=== PATIENT | female | born 1945 | race Caucasian/White ===

== ENCOUNTER → 2016-09-05 | Outpatient (CLI) | payer MEDICARE ==
[~2016-09-05] MED LIST: ASPI325T92 PO; ATOR10TA PO; DIAZ2TAB3 PO; FURO-93 PO; LEVO25TA4 PO; METO25TA35 PO
[2016-09-05 17:55] LABS: ASPARTATE AMINO TRANSFERASE 15 U/L (15-37); BLOOD UREA NITROGEN 16 mg/dL (7-18)
== END | disposition home or self-care (01) ==
LOC: LAB 17:11
PROVIDERS: ATTEND Internal Medicine Cardiovascular Disease
DX: I10 Essential (primary) hypertension (principal); E78.2 Mixed hyperlipidemia
CPT/HCPCS: 36415; 80053

== ENCOUNTER 2017-01-12 12:17 | Emergency (ER) | payer MEDICARE ==
[~2017-01-12] VITALS: Ht 170.2 cm; Wt 75.5 kg
[2017-01-12 12:19] VITALS: BP 103/56
== END 2017-01-12 12:56 | disposition home or self-care (01) ==
LOC: ED 12:40
DX: L03.313 Cellulitis of chest wall (principal)
CPT/HCPCS: 99283

== ENCOUNTER 2017-03-12 00:20 | Emergency (ER) | payer MEDICARE ==
[~2017-03-12] VITALS: Ht 170.2 cm; Wt 76.2 kg
[2017-03-12 02:30] VITALS: BP 118/77
== END 2017-03-12 02:33 | disposition home or self-care (01) ==
LOC: ED 01:31
DX: Z00.00 Encounter for general adult medical examination without abnormal findings (principal)
CPT/HCPCS: 99281

== ENCOUNTER 2017-10-28 02:40 | Emergency (ER) | payer MEDICARE, OTHER ==
[~2017-10-28] VITALS: Ht 162.6 cm; Wt 74.8 kg
[2017-10-28] MEDS ORDERED: NAPROXEN 500 MG TABLET ONE (03:25)
[2017-10-28 03:27] VITALS: BP 122/57
[2017-10-28] MEDS ORDERED: NAPROXEN 500 MG TABLET PO ONE (03:30)
[2017-10-28 03:33] LABS: BASOPHILS # (AUTO) 0.04 x10^3/uL (0-0.1); BASOPHILS % (AUTO) 1 % (0-1); EOSINOPHILS # (AUTO) 0.09 x10^3/uL (0-0.4); EOSINOPHILS % (AUTO) 2 % (1-7); LYMPHOCYTES # (AUTO) 1.46 x10^3/uL (1-3.4); LYMPHOCYTES % (AUTO) 25 % (22-44); MD NO; MEAN CORPUSCULAR HEMOGLOBIN 28.9 pg (27.0-34.8); MEAN CORPUSCULAR HGB CONC 33.2 g/dL (32.4-35.8); MEAN CORPUSCULAR VOLUME 86.9 fL (80-100); MEAN PLATELET VOLUME 9.8 fL (7.4-10.4); MONOCYTES # (AUTO) 0.83 x10^3/uL (0.2-0.8); MONOCYTES % (AUTO) 14 % (2-9); NEUTROPHILS # (AUTO) 3.53 x10^3/uL (1.8-6.8); NEUTROPHILS % (AUTO) 59 % (42-75); PLATELET COUNT 163 x10^3/uL (130-400); RED BLOOD COUNT 4.31 x10^6/uL (3.82-5.3); RED CELL DISTRIBUTION WIDTH 14.4 % (9.6-15.2)
[2017-10-28 03:41] LABS: ALANINE AMINOTRANSFERASE 19 U/L (12-78); ALBUMIN 3.5 g/dL (3.4-5.0); ANION GAP 6 mmol/L (5-15); CALCIUM 8.2 mg/dL (8.5-10.1); CHLORIDE 106 mmol/L (98-107); CREATININE 0.74 mg/dL (0.55-1.02)
[2017-10-28 03:46] LABS: ALKALINE PHOSPHATASE 72 U/L (45-117); BILIRUBIN,TOTAL 0.4 mg/dL (0.2-1.0); T4 (THYROXINE) 7.3 mcg/dL (4.8-13.9); TOTAL PROTEIN 6.4 g/dL (6.4-8.2); TROPONIN I < 0.015 ng/mL (0.000-0.045)
== END 2017-10-28 04:38 ==
LOC: ED 04:30
DX: R00.2 Palpitations (principal); R60.0 Localized edema; E03.1 Congenital hypothyroidism without goiter; I10 Essential (primary) hypertension; I48.91 Unspecified atrial fibrillation
CPT/HCPCS: 36415; 71045; 80053; 83880; 84436; 84443; 84484; 85025; 93005; 99285

== ENCOUNTER 2018-02-08 19:58 | Emergency (ER) | payer MEDICARE, OTHER ==
[~2018-02-08] VITALS: Ht 170.2 cm; Wt 60.0 kg
[2018-02-08 20:47] LABS: BASOPHILS # (AUTO) 0.04 x10^3/uL (0-0.1); BASOPHILS % (AUTO) 1 % (0-1); EOSINOPHILS % (AUTO) 1 % (1-7); LYMPHOCYTES # (AUTO) 1.96 x10^3/uL (1-3.4); LYMPHOCYTES % (AUTO) 25 % (22-44); MD NO; MEAN CORPUSCULAR HEMOGLOBIN 30.2 pg (27.0-34.8); MEAN CORPUSCULAR HGB CONC 33.6 g/dL (32.4-35.8); MEAN CORPUSCULAR VOLUME 90.1 fL (80-100); MONOCYTES # (AUTO) 0.72 x10^3/uL (0.2-0.8); MONOCYTES % (AUTO) 9 % (2-9); NEUTROPHILS # (AUTO) 5.06 x10^3/uL (1.8-6.8); NEUTROPHILS % (AUTO) 64 % (42-75); PLATELET COUNT 197 x10^3/uL (130-400); RED BLOOD COUNT 4.75 x10^6/uL (3.82-5.3); RED CELL DISTRIBUTION WIDTH 14.8 % (9.6-15.2)
[2018-02-08 20:48] LABS: MICROSCOPIC AUTO
[2018-02-08 20:50] LABS: CULTURE INDICATED? YES
[2018-02-08 20:59] LABS: ALANINE AMINOTRANSFERASE 23 U/L (12-78); ALBUMIN 4.3 g/dL (3.4-5.0); ANION GAP 8 mmol/L (5-15); CHLORIDE 106 mmol/L (98-107); CREATININE 0.79 mg/dL (0.55-1.02)
[2018-02-08 21:01] LABS: ALKALINE PHOSPHATASE 75 U/L (45-117); BILIRUBIN,TOTAL 0.7 mg/dL (0.2-1.0); TOTAL PROTEIN 7.5 g/dL (6.4-8.2)
[2018-02-08 21:31] VITALS: BP 114/72
== END 2018-02-08 21:48 | disposition home or self-care (01) ==
LOC: ED 20:30
DX: S16.1XXA Strain of muscle, fascia and tendon at neck level, initial encounter (principal); G44.219 Episodic tension-type headache, not intractable; E03.9 Hypothyroidism, unspecified; I10 Essential (primary) hypertension; I48.91 Unspecified atrial fibrillation; L03.116 Cellulitis of left lower limb; Z88.6 Allergy status to analgesic agent; Z88.0 Allergy status to penicillin; V49.49XA Driver injured in collision with other motor vehicles in traffic accident, initial encounter; Y93.89 Activity, other specified; Y99.8 Other external cause status; Y92.410 Unspecified street and highway as the place of occurrence of the external cause
CPT/HCPCS: 36415; 80053; 81001; 83690; 85025; 87086; 99284

== ENCOUNTER → 2018-06-20 | Outpatient (CLI) | payer MEDICARE, OTHER ==
[2018-06-20 12:55] LABS: CHLORIDE 110 mmol/L (98-107)
[2018-06-20 13:01] LABS: ALANINE AMINOTRANSFERASE 17 U/L (12-78); ALKALINE PHOSPHATASE 78 U/L (45-117); ANION GAP 5 mmol/L (5-15); BILIRUBIN,TOTAL 0.7 mg/dL (0.2-1.0); CHOL/HDL RATIO 3.4; CHOLESTEROL, TOTAL 203 mg/dL (140-239); CREATININE 0.69 mg/dL (0.55-1.02); HDL CHOL % 29 % (28-40); HDL CHOLESTEROL (DIRECT) 59 mg/dL (40-60); LDL CHOLESTEROL,CALCULATED 118 mg/dL (54-169); TOTAL PROTEIN 6.8 g/dL (6.4-8.2); TRIGLYCERIDES 132 mg/dL (50-200); VLDL CHOLESTEROL 26 mg/dL (0-25)
== END | disposition home or self-care (01) ==
LOC: CFH 09:24
PROVIDERS: ATTEND Internal Medicine Cardiovascular Disease
DX: E78.2 Mixed hyperlipidemia (principal)
CPT/HCPCS: 36415; 80053; 80061

== ENCOUNTER 2018-07-25 18:24 | Emergency (ER) | payer MEDICARE, OTHER ==
[~2018-07-25] VITALS: Ht 170.2 cm; Wt 64.5 kg
--- NOTE | 2018-07-25 18:55 | NUR ---
PT AMBULATED TO ROOM WITH STEADY GAIT. PT REPORTS HAVING VERTIGO THAT STARTED TODAY. PT IS ALERT, ORIENTED WITH NAD. PT IS CONNECTED TO THE MONITOR. CALL LIGHT WILernstiftIN REACH.
--- NOTE | 2018-07-25 18:55 | NUR ---
Recieved bedside report from LEONOR Christopher. All questions answered. NADN. Pt connected to all monitors. All safety measures in place. Call light within reach. No needs expressed at this time.
[2018-07-25] MEDS ORDERED: MECLIZINE CHEWABLE 25 MG TAB PO ONE (19:00)
[2018-07-25 19:02] LABS: BASOPHILS # (AUTO) 0.04 x10^3/uL (0-0.1); BASOPHILS % (AUTO) 1 % (0-1); EOSINOPHILS # (AUTO) 0.15 x10^3/uL (0-0.4); EOSINOPHILS % (AUTO) 2 % (1-7); LYMPHOCYTES % (AUTO) 21 % (22-44); MD NO; MEAN CORPUSCULAR HEMOGLOBIN 30.8 pg (27.0-34.8); MEAN CORPUSCULAR HGB CONC 33.8 g/dL (32.4-35.8); MEAN CORPUSCULAR VOLUME 91.2 fL (80-100); MEAN PLATELET VOLUME 9.9 fL (7.4-10.4); MONOCYTES % (AUTO) 9 % (2-9); NEUTROPHILS # (AUTO) 5.09 x10^3/uL (1.8-6.8); NEUTROPHILS % (AUTO) 67 % (42-75); PLATELET COUNT 175 x10^3/uL (130-400); RED BLOOD COUNT 4.76 x10^6/uL (3.82-5.3); RED CELL DISTRIBUTION WIDTH 13.4 % (9.6-15.2)
[2018-07-25] MEDS ORDERED: MECLIZINE CHEWABLE 25 MG TAB ONE (19:10)
[2018-07-25 19:12] LABS: ALANINE AMINOTRANSFERASE 19 U/L (12-78); ALBUMIN 4.1 g/dL (3.4-5.0); ANION GAP 2 mmol/L (5-15); CALCIUM 8.4 mg/dL (8.5-10.1); CHLORIDE 109 mmol/L (98-107); CREATININE 0.78 mg/dL (0.55-1.02)
[2018-07-25 19:16] LABS: ALKALINE PHOSPHATASE 81 U/L (45-117); BILIRUBIN,TOTAL 0.5 mg/dL (0.2-1.0); TROPONIN I < 0.015 ng/mL (0.000-0.045)
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
[2018-07-25 19:25] VITALS: BP 145/59
--- NOTE | 2018-07-25 20:49 | NUR ---
LATE NOTE ENTRY FOR 2034: Patient given discharge instructions and they have confirmed that they understand the instructions. Patient ambulatory with steady gait. Pt left with perscription, discharge paperwork, and all personal belongings.
== END 2018-07-25 20:53 | disposition home or self-care (01) ==
LOC: ED 18:58
DX: R42 Dizziness and giddiness (principal)
CPT/HCPCS: 36415; 70450; 80053; 84484; 85025; 93005; 99284

== ENCOUNTER 2018-08-18 18:47 | Emergency (ER) | payer MEDICARE, OTHER ==
[~2018-08-18] VITALS: Ht 170.2 cm; Wt 66.7 kg
[2018-08-18 19:06] VITALS: BP 155/70
--- NOTE | 2018-08-18 19:14 | NUR ---
Pt ambulated to room with EDT.
--- NOTE | 2018-08-18 19:22 | NUR ---
Dr. Fernandez at bedside to evaluate pt.
--- NOTE | 2018-08-18 19:30 | NUR ---
Pt refusing labs, CT, LP, meds or anything further in the ER. Pt is requesting just a prescription to go home. Pt states that her dog is in the car and she does not want to wait any longer.
--- NOTE | 2018-08-18 20:02 | NUR ---
Patient/Caregiver given discharge instructions and they have confirmed that they understand the instructions. Patient ambulatory with steady gait.
== END 2018-08-18 20:03 | disposition home or self-care (01) ==
LOC: ED 19:50
DX: G43.C1 Periodic headache syndromes in child or adult, intractable (principal); I10 Essential (primary) hypertension; E03.9 Hypothyroidism, unspecified; I48.91 Unspecified atrial fibrillation
CPT/HCPCS: 99283

== ENCOUNTER 2018-08-21 19:57 | Emergency (ER) | payer MEDICARE, OTHER ==
[~2018-08-21] VITALS: Ht 170.2 cm; Wt 66.9 kg
--- NOTE | 2018-08-21 20:17 | NUR ---
NO ANSWER X1
[2018-08-21 20:44] VITALS: BP 153/59
== END 2018-08-21 21:29 | disposition left against medical advice (07) ==
LOC: ED 21:10
DX: F29 Unspecified psychosis not due to a substance or known physiological condition (principal)
CPT/HCPCS: 99281

== ENCOUNTER 2018-09-30 10:49 | Emergency (ER) | payer MEDICARE, OTHER ==
[~2018-09-30] VITALS: Ht 170.2 cm; Wt 65.5 kg
[2018-09-30 10:59] VITALS: BP 145/51
[2018-09-30 12:09] LABS: BASOPHILS # (AUTO) 0.03 x10^3/uL (0-0.1); BASOPHILS % (AUTO) 1 % (0-1); EOSINOPHILS # (AUTO) 0.07 x10^3/uL (0-0.4); EOSINOPHILS % (AUTO) 1 % (1-7); LYMPHOCYTES # (AUTO) 1.42 x10^3/uL (1-3.4); LYMPHOCYTES % (AUTO) 22 % (22-44); MD NO; MEAN CORPUSCULAR HEMOGLOBIN 30.6 pg (27.0-34.8); MEAN CORPUSCULAR HGB CONC 33.9 g/dL (32.4-35.8); MEAN CORPUSCULAR VOLUME 90.3 fL (80-100); MEAN PLATELET VOLUME 10.1 fL (7.4-10.4); MONOCYTES # (AUTO) 0.55 x10^3/uL (0.2-0.8); MONOCYTES % (AUTO) 9 % (2-9); NEUTROPHILS # (AUTO) 4.34 x10^3/uL (1.8-6.8); NEUTROPHILS % (AUTO) 68 % (42-75); PLATELET COUNT 154 x10^3/uL (130-400); RED BLOOD COUNT 4.54 x10^6/uL (3.82-5.3); RED CELL DISTRIBUTION WIDTH 13.8 % (9.6-15.2)
[2018-09-30 12:19] LABS: ALBUMIN 3.9 g/dL (3.4-5.0); CALCIUM 8.5 mg/dL (8.5-10.1)
[2018-09-30 12:27] LABS: ANION GAP 7 mmol/L (5-15)
[2018-09-30 12:29] LABS: CHLORIDE 112 mmol/L (98-107)
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
[2018-09-30] MEDS ORDERED: KETOROLAC 30 MG/1 ML IM ONE (13:00)
--- NOTE | 2018-09-30 13:24 | NUR ---
REPROT TO SUSU GALVEZ.
--- NOTE | 2018-09-30 14:16 | NUR ---
Refuses toradol shot- wants to go home & check on dog. Patient given discharge instructions and they have confirmed that they understand the instructions. Patient ambulatory with steady gait.
== END 2018-09-30 14:18 | disposition home or self-care (01) ==
LOC: ED 14:07
DX: G44.221 Chronic tension-type headache, intractable (principal); I10 Essential (primary) hypertension; E03.9 Hypothyroidism, unspecified; I48.91 Unspecified atrial fibrillation
CPT/HCPCS: 36415; 80048; 82040; 85025; 85651; 99283

== ENCOUNTER 2019-04-10 11:49 | Emergency (ER) | payer MEDICARE, OTHER ==
[~2019-04-10] VITALS: Ht 170.2 cm; Wt 61.8 kg
--- NOTE | 2019-04-10 12:32 | NUR ---
BALE BREAKER OPERATOR: PT TO ROOM FROM [facility], GAIT SLOW, SLIGHTLY UNSTEADY. PT DECLINED W/C.
[2019-04-10 12:57] VITALS: BP 148/60
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
--- NOTE | 2019-04-10 13:34 | NUR ---
PT TO XRAY ON WILNER JOHNSON
[2019-04-10 13:39] LABS: BASOPHILS # (AUTO) 0.02 x10^3/uL (0-0.1); BASOPHILS % (AUTO) 0 % (0-1); EOSINOPHILS # (AUTO) 0.04 x10^3/uL (0-0.4); EOSINOPHILS % (AUTO) 1 % (1-7); LYMPHOCYTES % (AUTO) 19 % (22-44); MD NO; MEAN CORPUSCULAR HEMOGLOBIN 31.3 pg (27.0-34.8); MEAN CORPUSCULAR HGB CONC 33.2 g/dL (32.4-35.8); MEAN CORPUSCULAR VOLUME 94.1 fL (80-100); MEAN PLATELET VOLUME 10.1 fL (7.4-10.4); MONOCYTES # (AUTO) 0.54 x10^3/uL (0.2-0.8); MONOCYTES % (AUTO) 8 % (2-9); NEUTROPHILS # (AUTO) 5.06 x10^3/uL (1.8-6.8); NEUTROPHILS % (AUTO) 73 % (42-75); PLATELET COUNT 162 x10^3/uL (130-400); RED BLOOD COUNT 4.82 x10^6/uL (3.82-5.3); RED CELL DISTRIBUTION WIDTH 13.7 % (9.6-15.2)
[2019-04-10 13:43] LABS: MICROSCOPIC NOT IND
--- NOTE | 2019-04-10 13:44 | NUR ---
PT BACK TO ROOM AT THIS TIME
[2019-04-10 13:47] LABS: CULTURE INDICATED? NO
[2019-04-10 13:49] LABS: ALBUMIN 4.3 g/dL (3.4-5.0); ANION GAP 4 mmol/L (5-15); CALCIUM 8.8 mg/dL (8.5-10.1); CHLORIDE 108 mmol/L (98-107)
--- NOTE | 2019-04-10 13:50 | NUR ---
PT ASKING WHERE HER EARRINGS ARE, REMINDED PT THAT SHE HAD A BRIGHT PINK WRIST BAND ON HER ARM WITH HER EARRINGS THAT HAD BEEN PLACED ON HER ARM WHILE SHE WAS AT HER CHEST XRAY. PT HAD NO RECOLLECTION, PA AWARE.
[2019-04-10 13:59] LABS: ALANINE AMINOTRANSFERASE 24 U/L (12-78); ALKALINE PHOSPHATASE 68 U/L (45-117); BILIRUBIN,TOTAL 0.6 mg/dL (0.2-1.0); CREATININE 0.65 mg/dL (0.55-1.02); TOTAL PROTEIN 7.3 g/dL (6.4-8.2); TROPONIN I < 0.015 ng/mL (0.000-0.045)
[2019-04-10 14:13] LABS: FREE T4 (FREE THYROXINE) 0.88 ng/dL (0.76-1.46)
--- NOTE | 2019-04-10 14:25 | NUR ---
PSYCH EVALUATION IN PROGRESS
--- NOTE | 2019-04-10 14:49 | NUR ---
PT PLACED ON HOLD AFTER PSYCH EVALUATION. PT REPORTS THAT HER DOG IS IN THE CAR. CAR KEYS GIVEN TO SECURITY TO CHECK FOR DOG.
--- NOTE | 2019-04-10 15:09 | NUR ---
RECEIVED REPORT FROM LEONOR GUY. PT SPEAKING W/ ERP DR. LUCAS AT THIS TIME. PT TO BE MOVED FROM ER RM 31 TO ER RM 39.
--- NOTE | 2019-04-10 15:19 | NUR ---
PT MOVED TO ROOM 39 FOR SAFETY, REPORT GIVEN TO QUYEN GALVEZ
--- NOTE | 2019-04-10 15:31 | NUR ---
TUBE WINDER HAND: ANIMAL CONTROL CALLED BY ER GRAPHIC ENGINEER JAVON. NOTIFIED OF DOG IN PTS CAR. OFFICER TO BE SENT OUT.
--- NOTE | 2019-04-10 15:36 | NUR ---
PT RESTING ON GURNEY. NADN. PT UPSET AND TEARFUL. STATES SHE DOESN'T UNDERSTAND WHY SHE IS HERE. PT COOPERATIVE. PERSONAL BELONGINGS (BAG 1 OF 1) PLACED IN SECURE LOCKER. ROOM SECURED. SITTER AT BEDSIDE.
[2019-04-10 15:56] LABS: AMPHETAMINE SCREEN, URINE Negative (Negative); BARBITURATE SCREEN, URINE Negative (Negative); BENZODIAZEPINE SCREEN, URINE Negative (Negative); CANNABINOID SCREEN, URINE Negative (Negative); COCAINE SCREEN, URINE Negative (Negative); METHADONE SCREEN, URINE Negative (Negative); OPIATE SCREEN, URINE Negative (Negative)
--- NOTE | 2019-04-10 16:20 | NUR ---
TASK RN, MEAL TRAY PROVIDED. PT STATES SHE IS VEGETARIAN BUT OKAY WITH FRUIT, COOKIES AND CHIPS ON TRAY. ADDITIONAL TRAY ORDERED WITH SPECIFIED VEGETARIAN REQUEST. SITTER AT DOORWAY.
--- NOTE | 2019-04-10 16:26 | NUR ---
CONDOMINIUM MANAGER: AIR QUALITY ENGINEER HERE TO COLLECT PT'S DOG. OFFICER TO ROOM TO SPEAK WITH PT. PT KEYS TO BE PLACED WITH HER BELONGINGS.
--- NOTE | 2019-04-10 16:31 | NUR ---
ANIMAL DETENTION AT BEDSIDE TO DISCUSS CARE OF PT'S DOG.
--- NOTE | 2019-04-10 16:41 | NUR ---
PT PROVIDED W/ SI DINNER TRAY. SITTER REMAINS AT BEDSIDE. ROOM REMAINS SECURE.
--- NOTE | 2019-04-10 16:46 | NUR ---
REPORT GIVEN TO MATT LACEY RN. ALL QUESTIONS ANSWERED. AWAITING PT TRANSPORT.
== END 2019-04-10 17:07 ==
LOC: ED 14:16
DX: R41.82 Altered mental status, unspecified (principal); F23 Brief psychotic disorder; R42 Dizziness and giddiness
CPT/HCPCS: 36415; 70450; 71045; 80053; 80307; 81003; 84439; 84443; 84484; 85025; 93005; 99285

== ENCOUNTER 2019-10-01 11:20 | Emergency (ER) | payer MEDICARE, OTHER ==
[~2019-10-01] VITALS: Ht 170.2 cm; Wt 64.0 kg
[~2019-10-01 11:20] MED LIST changes: +DONE5TAB52 PO; +RISP0.5T24 PO
[2019-10-01 11:28] VITALS: BP 150/70
[2019-10-01] MEDS ORDERED: ACETAMINOPHEN 325 MG TABLET PO ONE (12:00)
[2019-10-01] MEDS ORDERED: ACETAMINOPHEN 325 MG TABLET ONE (12:03)
--- NOTE | 2019-10-01 12:52 | NUR ---
Pt given sling & discharge instructions and they have confirmed that they understand the instructions. Patient ambulatory with steady gait.
== END 2019-10-01 12:54 ==
LOC: ED 11:42
DX: S40.021A Contusion of right upper arm, initial encounter (principal); G89.11 Acute pain due to trauma; R07.9 Chest pain, unspecified; I10 Essential (primary) hypertension; E03.9 Hypothyroidism, unspecified; I48.91 Unspecified atrial fibrillation; W01.0XXA Fall on same level from slipping, tripping and stumbling without subsequent striking against object, initial encounter; Y93.89 Activity, other specified; Y92.098 Other place in other non-institutional residence as the place of occurrence of the external cause; Y99.8 Other external cause status
CPT/HCPCS: 99284

== ENCOUNTER 2019-10-26 22:11 | Emergency (ER) | payer MEDICARE, OTHER ==
[~2019-10-26] VITALS: Ht 170.2 cm; Wt 62.7 kg
--- NOTE | 2019-10-26 22:33 | NUR ---
PT AMBULATED BACK TO ROOM WITH A SMOOTH AND STEADY GAIT, CHANGED INTO GOWN, RESTING IN GURNEY, NAD, ABC INTACT, +CMS, GROSS NEURO INTACT, CALL LIGHT ON LAP, WCTM.
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
[2019-10-26 23:21] VITALS: BP 125/53
--- NOTE | 2019-10-26 23:54 | NUR ---
Patient given discharge instructions and they have confirmed that they understand the instructions. Patient ambulatory with steady gait. NO PT BELONGINGS LEFT IN ROOM, DENIES ANY ADDITIONAL QUESTIONS OR NEEDS, NAD, ABC INTACT, P/W/D.
== END 2019-10-26 23:55 | disposition home or self-care (01) ==
LOC: ED 23:54
DX: S63.501A Unspecified sprain of right wrist, initial encounter (principal); S43.401A Unspecified sprain of right shoulder joint, initial encounter; S46.811A Strain of other muscles, fascia and tendons at shoulder and upper arm level, right arm, initial encounter; I48.91 Unspecified atrial fibrillation; X50.0XXA Overexertion from strenuous movement or load, initial encounter; Y93.89 Activity, other specified; Y92.009 Unspecified place in unspecified non-institutional (private) residence as the place of occurrence of the external cause; Y99.8 Other external cause status
CPT/HCPCS: 99284

== ENCOUNTER 2019-11-28 18:53 | Emergency (ER) | payer MEDICARE, OTHER ==
[~2019-11-28] VITALS: Ht 170.2 cm; Wt 62.2 kg
--- NOTE | 2019-11-28 19:16 | NUR ---
Patient presents to ER c/o 09/27 sternal CP which started while washing her dog at approx 1100 or 1200 and lasted for approx 30 min. Pain did not radiate. No cardiac hx. Patient was seen by a mobile health service at that time. Patient is unsure what interventions they performed but states there were no abnormalities. Patient's CP has since resolved. Patient is in NAD. Respirations even and unlabored.
[2019-11-28] MEDS ORDERED: ASPIRIN 81 MG TABLET CHEW ONE (19:53)
[2019-11-28] MEDS ORDERED: ASPIRIN 81 MG TABLET CHEW PO ONE (20:00)
[2019-11-28 20:15] LABS: BASOPHILS # (AUTO) 0.05 x10^3/uL (0-0.1); BASOPHILS % (AUTO) 1 % (0-1); EOSINOPHILS # (AUTO) 0.12 x10^3/uL (0-0.4); EOSINOPHILS % (AUTO) 2 % (1-7); LYMPHOCYTES # (AUTO) 1.18 x10^3/uL (1-3.4); LYMPHOCYTES % (AUTO) 22 % (22-44); MD NO; MEAN CORPUSCULAR HEMOGLOBIN 30.8 pg (27.0-34.8); MEAN CORPUSCULAR HGB CONC 33.4 g/dL (32.4-35.8); MEAN CORPUSCULAR VOLUME 92.3 fL (80-100); MEAN PLATELET VOLUME 10.4 fL (7.4-10.4); MONOCYTES # (AUTO) 0.72 x10^3/uL (0.2-0.8); MONOCYTES % (AUTO) 14 % (2-9); NEUTROPHILS # (AUTO) 3.21 x10^3/uL (1.8-6.8); NEUTROPHILS % (AUTO) 61 % (42-75); PLATELET COUNT 137 x10^3/uL (130-400); RED BLOOD COUNT 4.09 x10^6/uL (3.82-5.3); RED CELL DISTRIBUTION WIDTH 13.8 % (9.6-15.2)
[2019-11-28 20:23] VITALS: BP 115/72
[2019-11-28 20:25] LABS: ALANINE AMINOTRANSFERASE 18 U/L (12-78); ALBUMIN 3.6 g/dL (3.4-5.0); ANION GAP 2 mmol/L (5-15); CALCIUM 8.5 mg/dL (8.5-10.1); CHLORIDE 114 mmol/L (98-107); CREATININE 0.69 mg/dL (0.55-1.02)
[2019-11-28 20:29] LABS: ALKALINE PHOSPHATASE 60 U/L (45-117); BILIRUBIN,TOTAL 0.4 mg/dL (0.2-1.0); TOTAL PROTEIN 5.8 g/dL (6.4-8.2); TROPONIN I < 0.015 ng/mL (0.000-0.045)
--- NOTE | 2019-11-28 21:02 | NUR ---
Discharge instructions given. All questions and concerns addressed. Patient ambulatory with a steady gait. Belongings with patinet.
== END 2019-11-28 21:04 | disposition home or self-care (01) ==
LOC: ED 19:48
DX: R07.2 Precordial pain (principal); R94.31 Abnormal electrocardiogram [ECG] [EKG]; I10 Essential (primary) hypertension; I48.91 Unspecified atrial fibrillation; E03.9 Hypothyroidism, unspecified
CPT/HCPCS: 36415; 71045; 80053; 84484; 85025; 93005; 99285

== ENCOUNTER 2020-02-20 12:42 | Emergency (ER) | payer MEDICARE, OTHER ==
[~2020-02-20] VITALS: Ht 170.2 cm; Wt 58.3 kg
[2020-02-20 13:41] LABS: BASOPHILS # (AUTO) 0.03 x10^3/uL (0-0.1); BASOPHILS % (AUTO) 1 % (0-1); EOSINOPHILS # (AUTO) 0.03 x10^3/uL (0-0.4); EOSINOPHILS % (AUTO) 1 % (1-7); LYMPHOCYTES # (AUTO) 1.23 x10^3/uL (1-3.4); LYMPHOCYTES % (AUTO) 23 % (22-44); MD NO; MEAN CORPUSCULAR HGB CONC 32.7 g/dL (32.4-35.8); MONOCYTES # (AUTO) 0.54 x10^3/uL (0.2-0.8); MONOCYTES % (AUTO) 10 % (2-9); NEUTROPHILS # (AUTO) 3.52 x10^3/uL (1.8-6.8); NEUTROPHILS % (AUTO) 66 % (42-75); PLATELET COUNT 146 x10^3/uL (130-400); RED BLOOD COUNT 4.49 x10^6/uL (3.82-5.3)
[2020-02-20 13:44] LABS: ALBUMIN 3.8 g/dL (3.4-5.0); ANION GAP 4 mmol/L (5-15); CALCIUM 9.1 mg/dL (8.5-10.1); CHLORIDE 113 mmol/L (98-107)
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
--- NOTE | 2020-02-20 14:52 | NUR ---
FIRST ATTEMPT TO COLLECT URINE, PT STATES SHE FORGOT TO COLLECT IT AND PEED IN TOILET. PT PROVIDED WATER AND WALKED TO BR. PT WITH SMALL AMOUNT OF URINE COLLECTED/SENT TO LAB. CALL LIGHT WITHIN REACH, VS UPDATED IN COMPUTER.
--- NOTE | 2020-02-20 15:04 | NUR ---
SPOKE WITH ERP REGARDING PT STATEMENTS AND INCONSISTENCY. PER ERP, PSYCH TURRET LATHE OPERATOR TO GO IN AND SEE PT. THIS RN, SPOKE WITH ADA LEYVA REGARDING STATEMENTS PROVIDED.
[2020-02-20 15:42] LABS: MICROSCOPIC INDICATED
[2020-02-20 16:19] LABS: SALICYLATE LEVEL < 1.7 mg/dL (2.8-20.0)
--- NOTE | 2020-02-20 16:26 | NUR ---
RETURN FROM BREAK. PT PLACED ON LEGAL HOLD PER GORDON GOLDSTEIN. PT UPSET, ATTEMPTING TO LEAVE ED. PROCESS EXPLAINED TO PT, PT IS NOT ABLE TO VERBALIZE UNDERSTANDING OF INSTRUCTIONS. TEACHING RESTATED, PT INFORMED SHE IS UNABLE TO LEAVE ED. PT EXPRESSES CONCERN OVER DOG AT HOUSE AND HOME "NOT SECURED". PT ASKED FOR NIGHT MANAGER TO NOTIFY TO SECURE HOUSE AND TAKE CARE OF DOG. PT STATES SHE HAS SOMEONE BUT CAN'T REMEMBER THEIR NUMBER. PT STATES SHE WILL TRY TO THINK OF OTHER PEOPLE. WILL REVISIT ISSUE LATER. SITTER AT DOORWAY.
[2020-02-20] MEDS ORDERED: RISPERIDONE 0.5 MG TABLET PO PRN (16:30)
[2020-02-20] MEDS ORDERED: HALOPERIDOL 5 MG/ML IM PRN (16:30)
--- NOTE | 2020-02-20 17:05 | NUR ---
PT MEDICATED PER EMAR. SITTER AT DOORWAY. PT STAYING IN ROOM AT THIS TIME.
--- NOTE | 2020-02-20 18:22 | NUR ---
REASSESSMENT. PT DENIES ANY MENTAL ILLNESS, SI, HI, AH, VH. PT A/O X PERSON, PLACE, UNABLE TO PROVIDE DATE INCLUDING YEAR. REVIEW OF CHART SHOW HOSPITALIZATION HERE FOR PSYCHOSIS 03/2019. PT ASKED OF HOSPITALIZATION BUT DENIES. PT ALSO DENIES BEING SEEN HERE THIS YEAR, LAST VISIT TO ED 11/2019. MEAL TRAY PROVIDED, PT STATES "I'M VEGETARIAN" AND DECLINES FRUIT AND JELLO, TAKING ONLY COOKIES. ADDITIONAL VEGETARIAN MEAL ORDERED. WARM BLANKET PROVIDED, CALL LIGHT WITHIN REACH.
--- NOTE | 2020-02-20 18:58 | NUR ---
BEDSIDE REPORT FROM BERTHA GALVEZ, PT CARE TRANSFERRED AT THIS TIME.
--- NOTE | 2020-02-20 19:00 | NUR ---
REPORT TO SANKET, TRANSFER OF CARE AT THIS TIME.
--- NOTE | 2020-02-20 19:08 | NUR ---
pt is sitting up on gurney, nad, denies additional needs, states she is finsihed eating, vss, call ligh ton lap, bed in lowest position, even and unlabored respirations, sitter in line of sight. WCTM. L2K
--- NOTE | 2020-02-20 20:15 | NUR ---
LATE ENTRY D/T PT CARE: PT AMBUALTED TO AND FROM RESTROOM WITH A SMOOTH AND STEADY GAIT, UA SENT TO LAB, NAD, DENIES ADDITIONAL NEEDS, GIVEN MORE WARM BLANKETS FOR COMFORT. WCTM.
[2020-02-20 21:08] LABS: AMPHETAMINE SCREEN, URINE Negative (Negative); BARBITURATE SCREEN, URINE Negative (Negative); BENZODIAZEPINE SCREEN, URINE Negative (Negative); CANNABINOID SCREEN, URINE Negative (Negative); COCAINE SCREEN, URINE Negative (Negative); METHADONE SCREEN, URINE Negative (Negative); OPIATE SCREEN, URINE Negative (Negative)
[2020-02-20 21:28] VITALS: BP 133/71
--- NOTE | 2020-02-20 21:28 | NUR ---
BEDSIDE REPORT TO YUNIOR GALVEZ, PT CARE TRANSFERRED AT THIS TIME.
--- NOTE | 2020-02-20 21:33 | NUR ---
report received, pt lying in bed resting comfortably watching tv, pleasant affect. denies any SI/SA. complains of 5/10 headache and asking for tylenol. sitter at doorway
--- NOTE | 2020-02-20 23:15 | NUR ---
PT RESTING WITH EYES CLOSED. SITTER AT DOORWAY
--- NOTE | 2020-02-21 01:19 | NUR ---
[facility] TO [facility], [facility], [facility], AND [facility].
--- NOTE | 2020-02-21 01:51 | NUR ---
REPORT GIVEN TO SANDI FROM [facility]. Addendum: 02/21/20 at 0156 by AMPARO NURSE TO NURSE REPORT GIVEN TO SANDI FROM [facility]. STATES HE WILL TALK TO AND CALL BACK.
--- NOTE | 2020-02-21 02:20 | NUR ---
ACCEPTED BY [facility] DR [place]A.
--- NOTE | 2020-02-21 03:17 | NUR ---
PT TO [place] [facility]IA [facility]. [facility]ULATORY TO AMBULANCE.
== END 2020-02-21 03:21 ==
LOC: ED 14:14
DX: F23 Brief psychotic disorder (principal); F22 Delusional disorders; R51.9 Headache, unspecified; M54.2 Cervicalgia; I10 Essential (primary) hypertension; I48.91 Unspecified atrial fibrillation; E03.9 Hypothyroidism, unspecified; Z86.39 Personal history of other endocrine, nutritional and metabolic disease
CPT/HCPCS: 36415; 72110; 80048; 80307; 81001; 82040; 85025; 99285

== ENCOUNTER 2020-09-27 18:05 | Emergency (ER) | payer MEDICARE, OTHER ==
[~2020-09-27] VITALS: Ht 170.2 cm; Wt 53.3 kg
[2020-09-27 18:13] VITALS: BP 150/72
--- NOTE | 2020-09-27 18:50 | NUR ---
MALENA MAHER PA STUDENT AT BEDSIDE FOR EVAL. PT REPORTS TRIPPING, NO DIZZINES PRIOR. NO LOC. PT AWAKE AND ALERT, ORIENTED X4. RESP EVEN AND UNLABORED, NADN.
--- NOTE | 2020-09-27 18:55 | NUR ---
REPORT RECIEVED FROM LEONOR MONAHAN. ERP AT BEDSIDE
== END 2020-09-27 20:10 | disposition home or self-care (01) ==
LOC: ED 20:07
DX: S06.0X0A Concussion without loss of consciousness, initial encounter (principal); I10 Essential (primary) hypertension; E03.9 Hypothyroidism, unspecified; I48.91 Unspecified atrial fibrillation; M54.2 Cervicalgia; M25.561 Pain in right knee; M25.562 Pain in left knee; Z86.39 Personal history of other endocrine, nutritional and metabolic disease; W01.0XXA Fall on same level from slipping, tripping and stumbling without subsequent striking against object, initial encounter; Y93.89 Activity, other specified; Y92.89 Other specified places as the place of occurrence of the external cause; Y99.8 Other external cause status
CPT/HCPCS: 99281